=== PATIENT | female | born 1955 | race Caucasian/White ===

== ENCOUNTER 2024-02-03 18:44 | Emergency (ER) | payer OTHER ==
[~2024-02-03] VITALS: Ht 157.5 cm; Wt 58.6 kg
[2024-02-03 18:59] VITALS: BP 117/74; PULSE 99; RESP 17; TEMP 98.8; O2SAT 98
[2024-02-03] MEDS ORDERED: PROM118S5 PO (21:05)
[2024-02-03] MEDS ORDERED: IBUP-2213 PO (21:05)
[2024-02-03] MEDS ORDERED: BENZ-300 PO (21:05)
[2024-02-03] MEDS: KETOROLAC 30 MG/ML VIAL IM ONE (21:14)
[2024-02-03] MEDS ORDERED: NIRM1TAB9 PO (21:27)
== END 2024-02-03 21:30 | disposition home or self-care (01) ==
LOC: MED 18:44
DX: U07.1 COVID-19 (principal); Z79.899 Other long term (current) drug therapy
CPT/HCPCS: 87426; 96372; 99283; J1885